=== PATIENT | female | born 1965 | race Caucasian/White ===

== ENCOUNTER 2017-02-20 16:14 | Observation (INO) | payer OTHER ==
[~2017-02-20] VITALS: Ht 170.2 cm; Wt 112.3 kg
[2017-02-20 18:01] LABS: BASOPHILS 0.6 % (0-2); EOSINOPHILS 5.1 % (0-7); HEMOGLOBIN 12.8 g/dL (12-16); IMMATURE GRANULOCYTES 0.7 % (0-5); LYMPHOCYTES 37.1 % (15-50); MCH 31.4 pg (26.0-34.0); MCHC 33.7 g/dL (31.0-37.0); MCV 93.4 fL (80.0-100.0); MONOCYTES 6.1 % (2-11); NEUTROPHILS 50.4 % (40-80); RBC 4.07 10x6/uL (4.00-5.40); RDW 12.7 % (11.5-14.5); WBC 6.9 10x3/uL (4.8-10.8)
[2017-02-20 18:06] LABS: PLATELET COUNT 241 10x3/uL (130-400)
[2017-02-20 18:20] LABS: ALBUMIN 3.5 g/dL (3.4-5.0); ALKALINE PHOSPHATASE 105 U/L (46-116); ALT (SGPT) 23 U/L (10-68); BILIRUBIN - TOTAL 0.25 mg/dL (0.2-1.3); CALC OSMOLALITY 279 mosm/kg (275-300); CALCIUM 9.2 mg/dL (8.5-10.1); CARBON DIOXIDE 29.1 mmol/L (21.0-32.0); CHLORIDE - SERUM 104 mmol/L (98-107); CREATININE - SERUM 1.2 mg/dL (0.6-1.3); GLUCOSE 125 mg/dL (74-106); POTASSIUM - SERUM 3.4 mmol/L (3.5-5.1); PROTEIN - SERUM 7.3 g/dL (6.4-8.2); SODIUM 141 mmol/L (136-145); UREA NITROGEN 8 mg/dL (7-18); eGFR NON AFRICAN AMERICAN 50 mL/min (90-120)
[2017-02-20 18:32] LABS: CHOL - HDL RATIO 4.8 ratio (2.3-4.1); CHOLESTEROL, TOTAL 209 mg/dL (0-200); CKMB 0.7 U/L (0.0-3.6); CREATINE KINASE 115 UL (21-215); HDL CHOLESTEROL 44 mg/dL (32-96); LDL CHOLESTEROL 106 mg/dL (0-100); LDL-HDL RATIO 2.4 ratio (1.5-3.5); TRIGLYCERIDE 296 mg/dL (30-200)
[2017-02-20 18:33] LABS: TROPONIN-I < 0.017 ng/mL (0.000-0.060)
--- NOTE | 2017-02-20 19:44 | NUR ---
RECIEVED TO ROOM 2121 FROM ER VIA WC. PT A&O. VITALS STABLE. RESPERATIONS EVEN ON RA. IV TO RIGHT AC SL, SITE CLEAN AND DRY. PLACED ON TELEMETRY, 71 SR, PER MT. SERRANO TRAY AND COLA GIVEN, NO OTHER NEEDS VOICED AT THIS TIME.
[2017-02-20] MEDS ORDERED: CLARITIN 10 MG10 MG PO (19:58)
[2017-02-20] MEDS ORDERED: PROZAC40 MG PO (19:58)
[2017-02-20] MEDS ORDERED: OMEPRAZOLE20 M1 PO (19:58)
[2017-02-20] MEDS ORDERED: K-TAB10 MEQ PO (19:59)
[2017-02-20] MEDS ORDERED: BIOTIN5 MG PO (19:59)
[2017-02-20] MEDS ORDERED: ADVIL200 MG PO (20:00)
[2017-02-20] MEDS ORDERED: ACETAMINOPHEN500 M1 PO (20:00)
[2017-02-20] MEDS ORDERED: MULTIPLE VITAMI1 TA1 PO (20:00)
[2017-02-20] MEDS ORDERED: AMITRIPTYLINE PO (20:04)
[2017-02-20] MEDS ORDERED: PERPHENAZINE PO (20:04)
--- NOTE | 2017-02-20 21:54 | NUR ---
HS MEDS GIVEN WITH FRESH ICE WATER, PT DENIES PAIN NEEDS, BED LOW, CL IN REACH.
[2017-02-21] VITALS: BP 136/82
[2017-02-21 00:41] LABS: CREATINE KINASE 111 UL (21-215); TROPONIN-I < 0.017 ng/mL (0.000-0.060)
--- NOTE | 2017-02-21 03:22 | NUR ---
RESTING WITH EYES CLOSED, RESPERATIONS EVEN, NO S/S DISTRESS NOTED.
[2017-02-21 03:35] VITALS: Ht 170.2 cm; Wt 112.3 kg
--- NOTE | 2017-02-21 07:08 | NUR ---
PT SLEEPING DURING BEDSIDE REPORT. ARROUSES EASILY. DENIES ANY NEEDS AT THIS TIME WILL CONT TO MONITOR
[2017-02-21 08:38] LABS: CKMB 0.4 U/L (0.0-3.6); CREATINE KINASE 101 UL (21-215)
[2017-02-21 08:41] LABS: TROPONIN-I < 0.017 ng/mL (0.000-0.060)
[2017-02-21 09:12] VITALS: BP 150/68
--- NOTE | 2017-02-21 09:16 | NUR ---
WENT OVER DC PAPERWORK WITH PT PT VERBALIZES UNDERSTANDING. DC PIV WITH CATH TIP INTACT. 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 WHEELED PT OUT TO FRONT ENTRANCE.
== END 2017-02-21 09:17 | disposition home or self-care (01) ==
LOC: D.ER 16:14 → D.M2 19:12 → OBSVTIME 19:12 → D.M2 02-21 09:17
PROVIDERS: Emergency Medicine; ADMIT Internal Medicine Cardiovascular Disease
DX: R07.9 Chest pain, unspecified (principal); I10 Essential (primary) hypertension; R00.2 Palpitations